=== PATIENT | female | born 1970 | race Caucasian/White ===

== ENCOUNTER 2017-04-08 13:55 | Outpatient (CLI) | payer OTHER | END 2017-04-08 22:00 | disposition home or self-care (01) | LOC: MLB 13:55 | PROVIDERS: ATTEND Surgery | DX: Z01.818 Encounter for other preprocedural examination (principal); K80.20 Calculus of gallbladder without cholecystitis without obstruction ==

== ENCOUNTER 2017-07-08 06:09 | Observation (INO) | payer OTHER ==
[2017-07-07 17:06] LABS: BASOPHILS # (AUTO) 0.3 K/uL (0.00-0.22); EOSINOPHILS # (AUTO) 0.1 K/uL (0-0.4); HEMOGLOBIN 14.5 g/dL (12.0-16.0); LYMPHOCYTES # (AUTO) 1.8 K/uL (2.5-16.5); MEAN CORPUSCULAR HEMOGLOBIN 31 pg (27-31); MEAN CORPUSCULAR HGB CONC 33 g/dL (33-37); MEAN CORPUSCULAR VOLUME 93 fL (80-94); NEUTROPHILS # (AUTO) 5.1 K/uL (1.8-7.7); PLATELET COUNT (AUTO) 297 K/uL (140-450); RED BLOOD CELL COUNT(AUTO) 4.71 MIL/uL (4.20-5.40); WHITE BLOOD COUNT (AUTO) 8.3 K/uL (4.8-10.8)
[2017-07-07 17:28] LABS: ALBUMIN 3.9 g/dL (3.4-5.0); ANION GAP 11.5 (8-16); CARBON DIOXIDE 27.8 mmol/L (21-32); CREATININE 0.7 mg/dL (0.6-1.3); POTASSIUM 4.3 mmol/L (3.5-5.1); TOTAL BILIRUBIN 0.2 mg/dL (0.0-1.0)
[~2017-07-08] VITALS: Ht 167.6 cm; Wt 74.8 kg
[2017-07-08] MEDS ORDERED: BUPIVACAINE-MPF 0.25% 30 ML VIAL INJ ONE (07:14)
[2017-07-08] MEDS ORDERED: ONDANSETRON 4 MG/2 ML VIAL ONE (07:28)
[2017-07-08] MEDS ORDERED: PROPOFOL 200 MG/20 ML VIAL IV ONE (07:28)
[2017-07-08] MEDS ORDERED: LIDOCAINE 2% 100 MG/5 ML SYR IVP ONE (07:28)
[2017-07-08] MEDS ORDERED: ROCURONIUM 50 MG/5 ML VIAL IV ONE (07:28)
[2017-07-08] MEDS ORDERED: DEXAMETHASONE 4 MG/ML VIAL ONE (07:28)
[2017-07-08] MEDS ORDERED: DESFLURANE 240 ML BTL INH ONE (07:28)
[2017-07-08] MEDS ORDERED: KETOROLAC 30 MG/ML VIAL ONE (07:28)
[2017-07-08] MEDS ORDERED: SUCCINYLCHOLINE CHLORIDE 200 MG/10 ML VIAL IVP ONE (07:28)
[2017-07-08] MEDS ORDERED: fentaNYL 0.05 MG/ML VIAL ONE (07:44)
[2017-07-08] MEDS ORDERED: MIDAZOLAM 2 MG/2 ML VIAL ONE (07:44)
[2017-07-08] MEDS ORDERED: HYDROmorphone 1 MG/ML AMP IVP PRN ×2 (08:05→10:10)
[2017-07-08] MEDS ORDERED: ONDANSETRON 4 MG/2 ML VIAL IVP PRN (08:05)
[2017-07-08] MEDS: HYDROmorphone PFS 2 MG/ML SYR ONE ×4 (09:55→10:25)
[2017-07-08] MEDS ORDERED: ACETAMINOPHEN 325 MG TAB PO PRN (10:10)
[2017-07-08] MEDS ORDERED: ONDANSETRON 4 MG/2 ML VIAL IV PRN (10:10)
[2017-07-08] MEDS ORDERED: MORPHINE SULFATE 4 MG/ML SYR IV PRN (10:10)
[2017-07-08 10:50] VITALS: BP 103/64
--- NOTE | 2017-07-08 10:50 | NUR ---
RECEIVED REPORT FROM PACU NURSE FOR CONTINUITY OF CARE. PT IS SLEEPY BUT EASILY AROUSABLE. PT'S FAMILY MEMBER AT BEDSIDE. INITIAL ASSESSMENT DONE. VSS. PT STATES PAIN IS TOLERABLE, DENIES DISCOMFORT, OR ANY FURTHER NEEDS. RESP EVEN AND UNLABORED. SKIN WARM AND DRY. 3 BANDAGES, CLEAN DRY AND INTACT. KARINA DRAINAGE TO THE RIGHT MID ABDOMEN NOTED. KARINA DRAINING WITH SEROUS SANGUINOUS, SMALL AMOUNT OF DRAINAGE NOTED. IV INFUSING, SITE CLEAR, NO REDNESS OR SWELLING NOTED. WILL CHANGE TO 70 ML/HR NS PER MD ORDER. PLAN OD CARE DISCUSSED WITH PT, VERBALIZED UNDERSTANDING. ORIENTED PT TO THE ROOM AND FLOOR. SAFETY MEASURES IN PLACED, SIDE RAILS UP, BED LOCKED ON LOW POSITION, CALL LIGHT WITHIN REACH. WILL CONTINUE TO MONITOR.
[2017-07-08 12:00] VITALS: BP 102/61
[2017-07-08] MEDS: NACL 0.9% 1,000 ML IV SCH (12:38)
--- NOTE | 2017-07-08 15:04 | NUR ---
PT AMBULATED TO THE RESTROOM WITH STEADY GAIT AND MINIMAL ASSISTANCE. RESP EVEN AND UNLABORED. NO S/S OF DISTRESS, RESTLESSNESS, OR SOB. AFTER RETURNING TO BED, PT C/O NAUSEA, WILL MEDICATE PER MD ORDER. PT DENIES THE NEED FOR PAIN MEDICATION AT THIS TIME. SAFETY MEASURES IN PLACED. WILL CONTINUE TO MONITOR. Addendum: 07/08/17 at 1857 by Dolores May RN PT VOIDED WITH NO ISSUES
[2017-07-08 16:00] VITALS: BP 92/58
--- NOTE | 2017-07-08 16:00 | NUR ---
PT ON BED. FAMILY MEMBERS AT BEDSIDE. PT OFF O2, O2 SATURATION AT 95% ON ROOM AIR. PT DENIES NEEDS AT THIS TIME. NO S/S OF RESTLESSNESS, DISCOMFORT, OR SOB. SAFETY MEASURES IN PLACED. BED LOCKED ON LOW POSITION, SIDE RAILS UP, CALL LIGHT WITHIN REACH. WILL CONTINUE TO MONITOR.
--- NOTE | 2017-07-08 17:00 | NUR ---
INCENTIVE SPIROMETER TEACHING DONE, PT RETURN DEMONSTRATED WITH GOOD TECHNIQUE.
--- NOTE | 2017-07-08 17:30 | NUR ---
PT AMBULATED TO THE RESTROOM. DENIES DISCOMFORT. NO S/S OF SYMPTOMS OF RESTLESSNESS, SOB, OR DISTRESS. SAFETY MEASURES IN PLACED. WILL CONTINUE TO MONITOR. Addendum: 07/08/17 at 1856 by Dolores May RN PT VOIDED WITH NO ISSUES.
--- NOTE | 2017-07-08 17:40 | NUR ---
PT VOMITED X1. COMFORT MEASURES PROVIDED TO THE PT. PT STATED "I WANT TO WALK". PT AMBULATED WITH STEADY GAIT. PT DENIES DISCOMFORT. NO S/S OF RESTLESSNESS, SOB, OR DISTRESS. WILL CONTINUE TO MONITOR.
--- NOTE | 2017-07-08 18:20 | NUR ---
PT STATED ROOM TEMP IS TOO HOT. REQUESTED TO BE TRANSFERRED. ENGINEERING UNABLE TO FIX THE THERMOSTAT. PT TRANSFERRED TO 106B IN HOSPITAL BED. PT TOLERATED WELL. DENIES DISCOMFORT OR NEEDS AT THIS TIME. ALL BELONGING MOVED BY PT'S DAUGHTER. WILL CONTINUE TO MONITOR.
--- NOTE | 2017-07-08 19:24 | NUR ---
ENDORSED TO PM NURSE FOR CONTINUITY OF CARE. PT IS STABLE.
--- NOTE | 2017-07-08 19:25 | NUR ---
RECD. RESTING IN BED, AWAKE, A/OX4. RESPIRATION EVEN AND UNLABORED. IV OF NS AT 70 ML/HR INFUSING, RIGHT HAND G 20. INCISION IN THE ABDOMEN (3) COVERED WITH BAND AID DRESSINGS, DRY AND INTACT. WITH 1 KARINA DRAINING MINIMAL AMOUNT OF SEROSANGUINEOUS FLUID. ON BILATERAL LEG SEQUENTIALS.AMBULATED ALREADY TO , VOIDING WELL, EATING MASHED POTATOES AT THIS TIME. STATED KNOWS HOW TO USE INCENTIVE SPIROMETER AT THE BEDSIDE. PLAN OF CARE FOR THE SHIFT DISCUSSED. VERBALIZED UNDERSTANDING. PAIN IN THE ABDOMEN 11/19, WANTS PAIN MEDICATION LATER. DAUGHTER AT THE BEDSIDE.
[2017-07-08 20:00] VITALS: BP 94/62
--- NOTE | 2017-07-08 20:00 | NUR ---
Patient's Plan of Care was discussed and reviewed with BIOMASS PRODUCTION MANAGER: ROBB SPEAR
[2017-07-08] MEDS: HYDROcodone/APAP 5/325 MG 1 TAB TAB PO PRN (20:34)
--- NOTE | 2017-07-08 22:00 | NUR ---
ASSISTED OUT OF BED TO GO TO BR TO VOID. BACK TO BED AFTER VOIDING. GAIT STEADY.
--- NOTE | 2017-07-08 22:30 | NUR ---
TOLERATED WELL REGULAR DIET, NO N/V NOTED.
--- NOTE | 2017-07-09 | NUR ---
VS STABLE, RESTING IN BED COMFORTABLY.
[2017-07-09] MEDS: NACL 0.9% 1,000 ML IV SCH ×3 (00:28→14:12)
[2017-07-09 03:15] VITALS: BP 90/48
[2017-07-09] MEDS: HYDROcodone/APAP 5/325 MG 1 TAB TAB PO PRN ×2 (03:53→13:52)
[2017-07-09 05:43] LABS: BASOPHILS # (AUTO) 0.1 K/uL (0.00-0.22); BASOPHILS % (AUTO) 0.6 % (0.0-2.0); EOSINOPHILS # (AUTO) 0.2 K/uL (0-0.4); EOSINOPHILS % (AUTO) 1.2 % (0.0-4.0); HEMATOCRIT 37.4 % (36-48); HEMOGLOBIN 12.3 g/dL (12.0-16.0); LYMPHOCYTES # (AUTO) 1.8 K/uL (2.5-16.5); LYMPHOCYTES % (AUTO) 11.8 % (20.5-51.1); MEAN CORPUSCULAR HEMOGLOBIN 31 pg (27-31); MEAN CORPUSCULAR HGB CONC 33 g/dL (33-37); MEAN CORPUSCULAR VOLUME 94 fL (80-94); MONOCYTES # (AUTO) 1.2 K/uL (0.8-1.0); MONOCYTES % (AUTO) 7.9 % (1.7-9.3); NEUTROPHILS # (AUTO) 11.9 K/uL (1.8-7.7); NEUTROPHILS % (AUTO) 78.5 % (42.2-75.2); PLATELET COUNT (AUTO) 262 K/uL (140-450); RED BLOOD CELL COUNT(AUTO) 3.96 MIL/uL (4.20-5.40); RED CELL DISTRIBUTION WIDTH 13.2 % (11.6-13.7); WHITE BLOOD COUNT (AUTO) 15.2 K/uL (4.8-10.8)
--- NOTE | 2017-07-09 07:03 | NUR ---
COMPLAINT OF PAIN ATTENDED PROMPTLY, MEDICATED ORDERED. CONDITION REMAIN STABLE. WILL ENDORSE TO AM NURSE FOR CONTINUITY OF CARE.
[2017-07-09 07:05] LABS: ALBUMIN 3.1 g/dL (3.4-5.0); ANION GAP 7.3 (8-16); CARBON DIOXIDE 27.4 mmol/L (21-32); CREATININE 0.7 mg/dL (0.6-1.3); POTASSIUM 4.7 mmol/L (3.5-5.1); TOTAL BILIRUBIN 0.4 mg/dL (0.0-1.0)
--- NOTE | 2017-07-09 07:18 | NUR ---
ASSUMED CONTINUITY OF CARE. NO SIGNS AND SYMPTOMS OF ACUTE DISTRESS NOTED. INITIAL ASSESSMENT DONE. KEEP COMFORTABLE ON BED. EXPLAINED DIAGNOSIS, PLAN OF CARE, POST-OP CARE, INCISION CARE, PAIN MANAGEMENT TEACHING, AMBULATION ENCOURAGEMENT, USE OF CALL LIGHT/BED/TV/BATHROOM. VERBALIZED UNDERSTANDING. CALL LIGHT WITHIN REACH.
--- NOTE | 2017-07-09 07:25 | NUR ---
Patient's Plan of Care was discussed and reviewed with TECHNICAL SERVICE ENGINEER: RALPH BERMEO RECEIVED PT IN BED. AWAKE. ALERT ORIENTED X4. NO SOB NOTED. DENIES ANY PAIN OR DISCOMFORT AT THIS TIME. SAFETY PRECAUTION IN PLACE. CALL LIGHT WITHIN REACH.
[2017-07-09 08:00] VITALS: BP 91/66
[2017-07-09 10:10] VITALS: BP 95/59
--- NOTE | 2017-07-09 11:21 | NUR ---
PATIENT HAS BEEN SCREENED AND CATEGORIZED MODERATE NUTRITION RISK. PATIENT WILL BE SEEN WITHIN 3-5 DAYS OF ADMISSION. 07/10/17-07/12/[address]
[2017-07-09 12:00] VITALS: BP 96/62
--- NOTE | 2017-07-09 12:50 | NUR ---
AMBULATES ON HALLWAY WITH ASSISTANCE FROM PT. -NGOC. TOLERATED WELL.
[2017-07-09 16:30] VITALS: BP 90/62
--- NOTE | 2017-07-09 17:30 | NUR ---
DR. CARBAJAL CAME CHECKED PT. CHART AND SEEN PT.. INFORMED OF PT. LATEST VS AT 1630 TEMP 98.4, BP 90/62, HR 94, RESP 18, O2 SAT 96% ON ROOM AIR. C/O ABD PAIN 12/20, ALSO INFORMED DR. CARBAJAL ABOUT KARINA DRAIN OUTPUT. DR. CARBAJAL SAID "PT. WILL BE D/C." INFORMED CHARGE NURSE DONNA MACK.
--- NOTE | 2017-07-09 17:40 | NUR ---
AMBULATES ON HALLWAY WITH ASSISTANCE FROM PT. SON. TOLERATED WELL.
--- NOTE | 2017-07-09 18:20 | NUR ---
EXPLAINED TO PT. AND PT. -NGOC ABOUT MD D/C ORDER, D/C INSTRUCTION AND TEACHING, DR. CARBAJAL FOLLOW-UP ON 2016 AND TO CALL FOR APPOINTMENT, MD D/C PRESCRIPTION LIST EDUCATION, INCISION CARE, PAIN MANAGEMENT TEACHING, DIET. PT. AND PT. -NGOC VERBALIZED UNDERSTANDING.
--- NOTE | 2017-07-09 18:25 | NUR ---
PT. REFUSED TO TAKE PICTURE ABDOMINAL INCISION SITE AND KARINA DRAIN SITE. INFORMED CHARGE NURSE DONNA MACK.
[2017-07-09] MEDS ORDERED: ACET-2869 PO ×2 (18:34→18:37)
--- NOTE | 2017-07-09 19:20 | NUR ---
D/C VIA WHEELCHAIR WITH ASSISTANCE FROM ROSEMARIE PACE, ACCOMPANIED BY PT. -NGOC. AWAKE, ALERT, AND ORIENTED X4. SPEECH CLEAR. C/O ABD PAIN 12/20. NO SOB, NOTED. IN STABLE CONDITION. INFORMED CHARGE NURSE.
== END 2017-07-09 19:20 | disposition home or self-care (01) ==
LOC: MDS 06:09 → MMU 06:09 → MDS 10:17 → MTU 10:17
PROVIDERS: ADMIT Surgery; ATTEND Surgery
DX: K80.10 Calculus of gallbladder with chronic cholecystitis without obstruction (principal); Z90.49 Acquired absence of other specified parts of digestive tract
CPT/HCPCS: 36415; 47562; 80053; 81025; 85025; 86886; 86900; 86901; 87081; 88304; 96365; 96375; 96376; G0378; J0330; J0690; J1100; J1170; J1885; J2001; J2250; J2405; J2704; J3010; J3490; J7030; J7060; J7120